=== PATIENT | female | born 1950 ===

== ENCOUNTER 2017-09-19 12:37 | Emergency (ER) | payer MEDICARE, MEDICAID ==
[2017-09-19] MEDS ORDERED: Sodium Chloride 0.9% 1,000 ML IV STA (13:21)
[2017-09-19 14:15] LABS: BASO % 0.4 % (0.0-2.0); EOS # 0.1 K/uL (0.0-0.7); EOS % 1.4 % (0.0-4.0); HEMOGLOBIN 11.8 g/dL (12.0-16.0); LYMPH % 41.3 % (20.0-40.0); MEAN CELL VOLUME 73.9 fl (81.0-99.0); MEAN CORPUSCULAR HEMOGLOBIN 23.1 pg (27.0-31.0); MEAN CORPUSCULAR HGB CONC 31.3 g/dL (33.0-37.0); MEAN PLATELET VOLUME 8.4 fl (7.2-11.7); MONO # 0.4 K/uL (0.0-0.8); MONO % 4.9 % (0.0-10.0); NEUT # 3.8 K/uL (1.8-7.0); RBC 5.09 Mil/uL (3.80-5.20); WHITE BLOOD COUNT 7.4 K/uL (4.8-10.8)
--- NOTE | 2017-09-19 14:17 | ED PDOC ---
Hyperglycemia/Hypoglycemia Time Seen by Provider: 09/19/17 12:48 Chief Complaint (Nursing): High Blood Sugar Chief Complaint (Provider): High blood sugar History Per: Patient History/Exam Limitations: no limitations Onset/Duration Of Symptoms: Other (couple of months) Current Symptoms Are (Timing): Still Present Causative (Exacerbating) Factor(s): Missed Taking Medication : The patient does not have any of the infectious symptoms listed except for those marked. Additional Complaint(s): 66 year old female, with a past medical hx of diabetes, presents to the ED via EMS complaining of elevated blood sugar for a couple of months. Patient reports she ran out of her prescriptions for metformin and insulin. She states she moved here a few months ago from [place] and hasn't seen her primary care doctor for a while. She saw her new PCP today who sent her to the ED due to the elevated blood sugar which was in the 400s in the office. Patient is complaining of increased thirst, generalized weakness, and increased urination. PCP: Mert Hartmann Past Medical History Reviewed: Historical Data, Nursing Documentation, Vital Signs Vital Signs: Last Vital Signs Temp 98.2 F 09/19/17 12:39 Pulse 79 09/19/17 12:39 Resp 18 09/19/17 12:39 BP 123/64 09/19/17 12:39 Pulse Ox 97 09/19/17 12:39 - Medical History PMH: CAD, HTN, TIA Denies: Chronic Kidney Disease - Surgical History Surgical History: Cholecystectomy, Coronary Stent, - Family History Family History: States: Unknown Family Hx - Social History Current smoker - smoking cessation education provided: No Alcohol: Social Drugs: Denies - Allergies Allergies/Adverse Reactions: Allergies Allergy/AdvReac Type Severity Reaction Status Date / Time iodine Allergy RASH Verified 09/19/17 12:39 morphine Allergy RASH Verified 09/19/17 12:39 Review of Systems ROS Statement: Except As Marked, All Systems Reviewed And Found Negative Constitutional: Positive for: Weakness, Other (thirsty) Cardiovascular: Negative for: Chest Pain Genitourinary Female: Positive for: Other (increased urination) Physical Exam - Reviewed Nursing Documentation Reviewed: Yes Vital Signs Reviewed: Yes - Physical Exam Appears: Positive for: Non-toxic, No Acute Distress Head Exam: Positive for: ATRAUMATIC, NORMOCEPHALIC Skin: Positive for: Normal Color, Warm, Dry Eye Exam: Positive for: EOMI, Normal appearance, PERRL ENT: Positive for: Normal ENT Inspection Neck: Positive for: Normal, Painless ROM Cardiovascular/Chest: Positive for: Regular Rate, Rhythm Respiratory: Positive for: CNT, Normal Breath Sounds Gastrointestinal/Abdominal: Positive for: Normal Exam, Soft. Negative for: Tenderness Extremity: Positive for: Normal ROM Neurologic/Psych: Positive for: Alert, Oriented. Negative for: Motor/Sensory Deficits - Laboratory Results Result Diagrams: 09/19/17 14:00 09/19/17 14:00 - ECG O2 Sat by Pulse Oximetry: 97 (RA) Pulse Ox Interpretation: Normal - Progress Re-evaluation Time: 16:46 Condition: Re-examined, Improved Medical Decision Making Medical Decision Making: Initial Impression: Hyperglycemia. Differentials include but not limited to uncontrolled diabetes due to noncompliance with medications. r/o DKA, UTI Initial Plan: CMP ED urine dipstick CBC Sodium chloride 1000mL IV Accucheck 1630 Patient is improved. Hyperglycemia is decreased to below 300. Patient reports she has rx at the pharmacy. Scribe Attestation: Documented by David Tijerina acting as a scribe for Laura Ocasio MD. Provider Scribe Attestation: All medical record entries made by the Scribe were at my direction and personally dictated by me. I have reviewed the chart and agree that the record accurately reflects my personal performance of the history, physical exam, medical decision making, and the department course for this patient. I have also personally directed, reviewed, and agree with the discharge instructions and disposition. Disposition - Clinical Impression Clinical Impression: Diabetic complication, Hyperglycemia - Patient ED Disposition Is Patient to be Admitted: No Discussed With : Mert Bright Doctor Will See Patient In The: Office Counseled Patient/Family Regarding: Studies Performed, Diagnosis, Need For Followup - Disposition Referrals: Mert Bright MD [Staff Provider] - Disposition: Routine/Home Disposition Time: 16:46 Condition: GOOD Additional Instructions: Take your medications as instructed. Follow up with your PCP in 2-3 days Instructions: Type 2 Diabetes, Diabetes and Diet
[2017-09-19 14:35] LABS: ALB/GLOB RATIO 1.3 (1.0-2.1); ALBUMIN 3.7 g/dL (3.5-5.0); ALT/SGPT 27 U/L (9-52); AST/SGOT 18 U/L (14-36); BLOOD UREA NITROGEN 11 mg/dl (7-17); CALCIUM 8.8 mg/dL (8.4-10.2); GFR AFRICAN-AMERICAN > 60; GFR NON-AFRICAN AMERICAN > 60
[2017-09-19] MEDS ORDERED: Insulin Regular 100 units/ml IV STA (14:58)
[2017-09-19] MEDS ORDERED: Insulin Regular 100 units/ml ONE (15:16)
[2017-09-19 16:48] VITALS: O2SAT 97
[2017-09-19 17:14] VITALS: BP 139/84; PULSE 84; RESP 16; TEMP 97.9
== END 2017-09-19 17:12 | disposition home or self-care (01) ==
LOC: H.ER 12:37
DX: E11.65 Type 2 diabetes mellitus with hyperglycemia (principal); Z91.14 Patient's other noncompliance with medication regimen; Z95.5 Presence of coronary angioplasty implant and graft
CPT/HCPCS: 80053; 85025; 96360; 99283; J7030

== ENCOUNTER 2017-12-18 12:48 | Emergency (ER) | payer MEDICAID, MEDICARE ==
[2017-12-18 12:54] VITALS: TEMP 98.2
--- NOTE | 2017-12-18 13:42 | ED PDOC ---
HPI: Psych/Substance Abuse Time Seen by Provider: 12/18/17 13:08 Chief Complaint (Nursing): Anxiety Chief Complaint (Provider): Anxiety History Per: Patient Additional Complaint(s): 66 year old female, with a past medical hx of diabetes, presents to the ED via EMS complaining of feeling anxious, feeling itching and something crawling all over her body. Pt asking for xanax and a pillow Past Medical History Reviewed: Historical Data, Nursing Documentation, Vital Signs Vital Signs: Last Vital Signs Temp 98.2 F 12/18/17 12:51 Pulse 92 H 12/18/17 12:51 Resp 19 12/18/17 12:51 BP 116/53 L 12/18/17 12:51 Pulse Ox 98 12/18/17 12:51 - Medical History PMH: Anxiety, Bronchitis, CAD, HTN, TIA Denies: Chronic Kidney Disease - Surgical History Surgical History: Cholecystectomy, Coronary Stent, - Family History Family History: States: Unknown Family Hx - Living Arrangements Living Arrangements: With Family - Social History Current smoker - smoking cessation education provided: No Alcohol: None Drugs: Denies - Home Medications Home Medications: Ambulatory Orders Medication Instructions Recorded Aripiprazole 20 mg PO DAILY 11/06/17 Aspirin [Aspirin Chewable] 81 mg PO DAILY 11/06/17 Atorvastatin [Lipitor] 50 mg PO DAILY 11/06/17 Dicyclomine [Bentyl] 20 mg PO DAILY 11/06/17 Enalapril Maleate [Vasotec] 5 mg PO DAILY 11/06/17 Gabapentin [Neurontin] 400 mg PO BID 11/06/17 Meloxicam 15 mg PO DAILY 11/06/17 Memantine [Namenda] 5 mg PO DAILY 11/06/17 Omeprazole 40 mg PO DAILY 11/06/17 Repaglinide [Prandin] 2 mg PO BID 11/06/17 Sucralfate [Carafate] 500 mg PO BID 11/06/17 metFORMIN [glucOPHAGE] 500 mg PO BID 11/06/17 Alprazolam [Xanax] 0.5 mg PO HS #3 tab 12/18/17 - Allergies Allergies/Adverse Reactions: Allergies Allergy/AdvReac Type Severity Reaction Status Date / Time iodine Allergy RASH Verified 11/06/17 00:48 morphine Allergy RASH Verified 11/06/17 00:48 Review of Systems ROS Statement: Except As Marked, All Systems Reviewed And Found Negative Psych: Positive for: Anxiety Physical Exam - Reviewed Nursing Documentation Reviewed: Yes Vital Signs Reviewed: Yes - Physical Exam Appears: Positive for: Well, Non-toxic, No Acute Distress Head Exam: Positive for: ATRAUMATIC, NORMAL INSPECTION, NORMOCEPHALIC Skin: Positive for: Normal Color, Warm, DRY Eye Exam: Positive for: EOMI, Normal appearance, PERRL ENT: Positive for: Normal ENT Inspection Neck: Positive for: Normal, Painless ROM Cardiovascular/Chest: Positive for: Regular Rate, Rhythm Respiratory: Positive for: CNT, Normal Breath Sounds Gastrointestinal/Abdominal: Positive for: Normal Exam, Soft Back: Positive for: Normal Inspection Extremity: Positive for: Normal ROM Neurologic/Psych: Positive for: Alert, Oriented - ECG O2 Sat by Pulse Oximetry: 98 Medical Decision Making Medical Decision Making: Pt declined crisis eval Pt asking for Xanax Rx and to go home Disposition - Clinical Impression Clinical Impression: Anxiety - Patient ED Disposition Is Patient to be Admitted: No - Disposition Referrals: Mert Bright MD [Primary Care Provider] - Disposition: Routine/Home Disposition Time: 13:58 Condition: STABLE Prescriptions: Alprazolam [Xanax] 0.5 mg PO HS #3 tab Instructions: Anxiety, Adult (DC) Forms: [employer] (Kiswahili)
[2017-12-18 13:54] VITALS: BP 128/84; PULSE 74; RESP 18
[2017-12-18 13:57] VITALS: O2SAT 98
== END 2017-12-18 13:54 | disposition home or self-care (01) ==
LOC: H.ER 12:48 → SUPCPDRO 12:48 → H.ER 13:54
DX: F41.9 Anxiety disorder, unspecified (principal); E11.9 Type 2 diabetes mellitus without complications; Z79.84 Long term (current) use of oral hypoglycemic drugs

== ENCOUNTER 2017-12-25 11:21 | Emergency (ER) | payer MEDICARE, MEDICAID ==
[2017-12-25] MEDS ORDERED: Albuterol-Ipratrop 3 mg / 0.5 (3 ml) UD INH STA ×2 (11:52→11:56)
[2017-12-25] MEDS ORDERED: Azithromycin 500 MG in Sodium Chloride 0.9% 250 ML IVPB STA (11:54)
[2017-12-25] MEDS ORDERED: Albuterol-Ipratrop 3 mg / 0.5 (3 ml) UD ONE (12:31)
[2017-12-25] MEDS ORDERED: Azithromycin 500 MG IV IVPB ONE (12:32)
--- NOTE | 2017-12-25 12:43 | RAD ---
Date of service: 12/25/2017 PROCEDURE: CHEST RADIOGRAPH, 1 VIEW HISTORY: cough COMPARISON: None available. FINDINGS: LUNGS: Mild dependent atelectasis is noted. No focal infiltrate is seen. No CHF is noted. PLEURA: No pneumothorax or pleural fluid seen. CARDIOVASCULAR: Normal. OSSEOUS STRUCTURES: No significant abnormalities. VISUALIZED UPPER ABDOMEN: Normal. OTHER FINDINGS: None. IMPRESSION: No focal infiltrate or CHF.
[2017-12-25 13:45] LABS: BASO % 0.6 % (0.0-2.0); EOS # 0.1 K/uL (0.0-0.7); EOS % 1.5 % (0.0-4.0); HEMOGLOBIN 11.9 g/dL (12.0-16.0); LYMPH # 3.5 K/uL (1.0-4.3); LYMPH % 43.8 % (20.0-40.0); MEAN CELL VOLUME 77.3 fl (81.0-99.0); MEAN CORPUSCULAR HEMOGLOBIN 24.4 pg (27.0-31.0); MEAN CORPUSCULAR HGB CONC 31.6 g/dL (33.0-37.0); MEAN PLATELET VOLUME 8.1 fl (7.2-11.7); MONO # 0.4 K/uL (0.0-0.8); MONO % 5.2 % (0.0-10.0); NEUT # 3.9 K/uL (1.8-7.0); NEUT % 48.9 % (50.0-75.0); NRBC % 0.1 % (0.0-0.0); RBC 4.87 Mil/uL (3.80-5.20); RED CELL DISTRIBUTION WIDTH 18.3 % (11.5-14.5); WHITE BLOOD COUNT 7.9 K/uL (4.8-10.8)
[2017-12-25 13:54] LABS: BLOOD UREA NITROGEN 9 mg/dl (7-17); GFR NON-AFRICAN AMERICAN > 60
--- NOTE | 2017-12-25 14:00 | ED PDOC ---
HPI: SOB/CHF/COPD Time Seen by Provider: 12/25/17 11:49 Chief Complaint (Nursing): Shortness Of Breath History/Exam Limitations: no limitations Onset/Duration Of Symptoms: Days Current Symptoms Are (Timing): Still Present Initiating Event: Upper Respiratory Illness Associated Symptoms: Chills, Productive Cough. denies: Ankle/Leg Swelling, Dizziness, Light-headedness Additional Complaint(s): 67 yo F with PMHx of asthma, DM, and anxiety presents with wheeze and cough worsening for 2 days. Denies fever but states she has felt chills. No CP. No previous intubations. Pt states she used albuterol at home but it did not help. Past Medical History Vital Signs: Last Vital Signs Temp 98 F 12/25/17 11:25 Pulse 88 12/25/17 11:25 Resp 17 12/25/17 12:23 BP 128/74 12/25/17 11:25 Pulse Ox 98 12/25/17 12:23 - Medical History PMH: Anxiety, Asthma, Bronchitis, CAD, HTN, TIA Denies: Chronic Kidney Disease - Surgical History Surgical History: Cholecystectomy, Coronary Stent, - Family History Family History: States: Unknown Family Hx - Home Medications Home Medications: Ambulatory Orders Medication Instructions Recorded Aripiprazole 20 mg PO DAILY 11/06/17 Aspirin [Aspirin Chewable] 81 mg PO DAILY 11/06/17 Atorvastatin [Lipitor] 50 mg PO DAILY 11/06/17 Dicyclomine [Bentyl] 20 mg PO DAILY 11/06/17 Enalapril Maleate [Vasotec] 5 mg PO DAILY 11/06/17 Gabapentin [Neurontin] 400 mg PO BID 11/06/17 Meloxicam 15 mg PO DAILY 11/06/17 Memantine [Namenda] 5 mg PO DAILY 11/06/17 Omeprazole 40 mg PO DAILY 11/06/17 Repaglinide [Prandin] 2 mg PO BID 11/06/17 Sucralfate [Carafate] 500 mg PO BID 11/06/17 metFORMIN [glucOPHAGE] 500 mg PO BID 11/06/17 Alprazolam [Xanax] 0.5 mg PO HS #3 tab 12/18/17 Albuterol HFA [Ventolin HFA 90 2 puff IH [id number] #1 pump 12/25/17 mcg/actuation (8 g)] Azithromycin [Z-To] 250 mg PO DAILY #6 tab 12/25/17 predniSONE [predniSONE Tab] 40 mg PO DAILY #8 tab 12/25/17 - Allergies Allergies/Adverse Reactions: Allergies Allergy/AdvReac Type Severity Reaction Status Date / Time iodine Allergy RASH Verified 12/25/17 11:27 morphine Allergy RASH Verified 12/25/17 11:27 Curb-65 Severity Score - CURB-65 Severity Score Confusion: No Bun >19mg/dl (>7mmol/L): No Respiratory Rate greater than/equal to 30: No Systolic BP <90 or Diastolic BP less than/equal 60mmHg: No Age >64: Yes Curb-65 Score: 1 Percentage 30-day mortality: 2.7% Review of Systems Constitutional: Positive for: Chills Cardiovascular: Negative for: Chest Pain, Palpitations, Edema Respiratory: Positive for: Cough, Shortness of Breath, Wheezing Gastrointestinal: Negative for: Nausea, Vomiting, Abdominal Pain Genitourinary Female: Negative for: Dysuria Skin: Negative for: Rash, Lesions Psych: Positive for: Anxiety - Laboratory Results Result Diagrams: 12/25/17 12:30 12/25/17 12:30 - ECG O2 Sat by Pulse Oximetry: 98 Medical Decision Making Medical Decision Makin yo F with asthma with cough. -duonebs -solumedrol -CXR -Azithromycin -reassess pt 1239 Chest X-Ray FINDINGS: LUNGS: Mild dependent atelectasis is noted. No focal infiltrate is seen. No CHF is noted. PLEURA: No pneumothorax or pleural fluid seen. CARDIOVASCULAR: Normal. OSSEOUS STRUCTURES: No significant abnormalities. VISUALIZED UPPER ABDOMEN: Normal. OTHER FINDINGS: None. IMPRESSION: No focal infiltrate or CHF. labs WNL, CXR shows no infiltrates. Pt with elevated blood glucose but refusing insulin while in the ED stating she will take it when she gets home. Pt will follow up with PMD this week. Return parameters discussed. Disposition - Clinical Impression Clinical Impression: Respiratory distress, Asthma, Bronchitis - Disposition Disposition: Routine/Home Disposition Time: 14:15 Condition: IMPROVED Additional Instructions: Take medications as prescribed. Follow up with Dr. Bright this week. Return to the emergency department if symptoms worsen or if new symptoms develop. Prescriptions: Albuterol HFA [Ventolin HFA 90 mcg/actuation (8 g)] 2 puff IH [id number] #1 pump Azithromycin [Z-To] 250 mg PO DAILY #6 tab predniSONE [predniSONE Tab] 40 mg PO DAILY #8 tab Forms: [employer] ([place]orese) Print Language: SPA
[2017-12-25 15:22] VITALS: BP 124/74; PULSE 76; RESP 20; TEMP 98.2; O2SAT 99
== END 2017-12-25 15:22 | disposition home or self-care (01) ==
LOC: H.ER 11:21
DX: R06.03 Acute respiratory distress (principal); J45.909 Unspecified asthma, uncomplicated; J44.9 Chronic obstructive pulmonary disease, unspecified; I10 Essential (primary) hypertension; Z86.73 Personal history of transient ischemic attack (TIA), and cerebral infarction without residual deficits; Z95.5 Presence of coronary angioplasty implant and graft
CPT/HCPCS: 71045; 80048; 82948; 85025; 87040; 96365; 96375; 99283; J0456; J2930; J7050

== ENCOUNTER 2017-12-27 10:40 | Observation (INO) | payer MEDICARE, MEDICAID ==
[2017-12-27] MEDS ORDERED: Albuterol-Ipratrop 3 mg / 0.5 (3 ml) UD IH STA ×2 (10:59→11:00)
--- NOTE | 2017-12-27 11:03 | ED PDOC ---
HPI: CCC, URI, Sore Throat Time Seen by Provider: 12/27/17 10:54 History Per: Patient Onset/Duration Of Symptoms: Days (2) Associated Symptoms: Cough, Sputum. denies: Fever Severity: Moderate Additional Complaint(s): Cough productive white sputum x 2 days assoc with SOB and wheezing. Denies fever. Seen here 3 days ago and tx'ed with nebs, steroids and antibiotics. Past Medical History Vital Signs: Last Vital Signs Temp 98.3 F 12/27/17 10:51 Pulse 101 H 12/27/17 10:51 Resp 18 12/27/17 10:51 BP 99/67 L 12/27/17 10:51 Pulse Ox 95 12/27/17 10:51 - Medical History PMH: Anxiety, Asthma, Bronchitis, CAD, HTN, TIA Denies: Chronic Kidney Disease - Surgical History Surgical History: Cholecystectomy, Coronary Stent, - Family History Family History: States: Unknown Family Hx - Home Medications Home Medications: Ambulatory Orders Medication Instructions Recorded Aripiprazole 20 mg PO DAILY 11/06/17 Aspirin [Aspirin Chewable] 81 mg PO DAILY 11/06/17 Atorvastatin [Lipitor] 50 mg PO DAILY 11/06/17 Dicyclomine [Bentyl] 20 mg PO DAILY 11/06/17 Enalapril Maleate [Vasotec] 5 mg PO DAILY 11/06/17 Gabapentin [Neurontin] 400 mg PO BID 11/06/17 Meloxicam 15 mg PO DAILY 11/06/17 Memantine [Namenda] 5 mg PO DAILY 11/06/17 Omeprazole 40 mg PO DAILY 11/06/17 Repaglinide [Prandin] 2 mg PO BID 11/06/17 Sucralfate [Carafate] 500 mg PO BID 11/06/17 metFORMIN [glucOPHAGE] 500 mg PO BID 11/06/17 Alprazolam [Xanax] 0.5 mg PO HS #3 tab 12/18/17 Albuterol HFA [Ventolin HFA 90 2 puff IH [id number] #1 pump 12/25/17 mcg/actuation (8 g)] Azithromycin [Z-To] 250 mg PO DAILY #6 tab 12/25/17 predniSONE [predniSONE Tab] 40 mg PO DAILY #8 tab 12/25/17 - Allergies Allergies/Adverse Reactions: Allergies Allergy/AdvReac Type Severity Reaction Status Date / Time iodine Allergy RASH Verified 12/25/17 11:27 morphine Allergy RASH Verified 12/25/17 11:27 Review of Systems ROS Statement: Except As Marked, All Systems Reviewed And Found Negative Constitutional: Negative for: Fever Respiratory: Positive for: Cough, Shortness of Breath, Wheezing Physical Exam - Reviewed Nursing Documentation Reviewed: Yes Vital Signs Reviewed: Yes - Physical Exam Appears: Positive for: Non-toxic, No Acute Distress Head Exam: Positive for: ATRAUMATIC, NORMAL INSPECTION, NORMOCEPHALIC Skin: Positive for: Normal Color, Warm, DRY Eye Exam: Positive for: EOMI, Normal appearance, PERRL ENT: Positive for: Normal ENT Inspection Neck: Positive for: Normal, Painless ROM Cardiovascular/Chest: Positive for: Regular Rate, Rhythm Respiratory: Positive for: Rhonchi, Wheezing. Negative for: Respiratory Distr ess Gastrointestinal/Abdominal: Positive for: Normal Exam, Soft Back: Positive for: Normal Inspection Extremity: Positive for: Normal ROM. Negative for: Calf Tenderness Neurologic/Psych: Positive for: Alert, Oriented - Laboratory Results Result Diagrams: 12/27/17 11:45 12/27/17 11:45 - ECG O2 Sat by Pulse Oximetry: 95 - Progress Re-evaluation Time: 13:16 Condition: Re-examined (Persistent wheezing after tx and outpt tx. No resp distress.) Disposition - Clinical Impression Clinical Impression: Asthma, Failure of outpatient treatment - Patient ED Disposition Is Patient to be Admitted: Yes - Disposition Disposition Time: 13:17 Condition: FAIR - Pt Status Changed To: Hospital Disposition Of: Observation - POA Present On Arrival: None
[2017-12-27] MEDS ORDERED: Albuterol-Ipratrop 3 mg / 0.5 (3 ml) UD ONE (11:18)
[2017-12-27 12:09] LABS: BASO % 0.4 % (0.0-2.0); EOS % 0.4 % (0.0-4.0); HEMOGLOBIN 11.9 g/dL (12.0-16.0); LYMPH # 3.4 K/uL (1.0-4.3); MEAN CELL VOLUME 77.1 fl (81.0-99.0); MEAN CORPUSCULAR HEMOGLOBIN 24.6 pg (27.0-31.0); MEAN CORPUSCULAR HGB CONC 31.9 g/dL (33.0-37.0); MEAN PLATELET VOLUME 8.1 fl (7.2-11.7); MONO # 0.5 K/uL (0.0-0.8); MONO % 5.3 % (0.0-10.0); NEUT # 6.2 K/uL (1.8-7.0); NEUT % 60.9 % (50.0-75.0); NRBC % 0.1 % (0.0-0.0); RBC 4.85 Mil/uL (3.80-5.20); RED CELL DISTRIBUTION WIDTH 18.2 % (11.5-14.5); WHITE BLOOD COUNT 10.2 K/uL (4.8-10.8)
[2017-12-27 12:13] LABS: ALB/GLOB RATIO 1.5 (1.0-2.1); ALBUMIN 3.9 g/dL (3.5-5.0); ALT/SGPT 20 U/L (9-52); AST/SGOT 19 U/L (14-36); BLOOD UREA NITROGEN 24 mg/dl (7-17); CALCIUM 9.2 mg/dL (8.4-10.2); GFR NON-AFRICAN AMERICAN > 60
[2017-12-27] MEDS ORDERED: Sodium Chloride 0.9% 1,000 ML IV STA (12:29)
[2017-12-27] MEDS ORDERED: Insulin Regular 100 units/ml SC STA ×2 (12:29→13:59)
[2017-12-27] MEDS ORDERED: Insulin Regular 100 units/ml ONE (13:04)
--- NOTE | 2017-12-27 13:08 | RAD ---
Date of service: 12/27/2017 HISTORY: Cough SOB COMPARISON: 12/25/2017. TECHNIQUE: Chest PA and lateral FINDINGS: LUNGS: No active pulmonary disease. PLEURA: No significant pleural effusion identified. No pneumothorax apparent. CARDIOVASCULAR: Normal. OSSEOUS STRUCTURES: No significant abnormalities. VISUALIZED UPPER ABDOMEN: Normal. OTHER FINDINGS: None. IMPRESSION: No active disease. No significant interval change compared to the prior examination(s).
[2017-12-27] MEDS ORDERED: Dextrose 50% SYRINGE Inj (50 ml) IV PRN (15:20)
[2017-12-27] MEDS ORDERED: Glucagon Recombinant 1 mg Inj IM PRN (15:20)
[2017-12-27] MEDS: Insulin Lispro (humaLOG) 100 Units/ml Inj SC SCH ×4 (15:26→22:01)
[2017-12-27] MEDS ORDERED: MethylPREDNISolone 40 mg Vial IVP SCH (15:30)
[2017-12-27] MEDS: Albuterol-Ipratrop 3 mg / 0.5 (3 ml) UD INH SCH ×2 (15:51→20:30)
[2017-12-27] MEDS ORDERED: methylPREDNISolone 40 MG in Sodium Chloride 0.9% 50 ML IVPB SCH (17:00)
[2017-12-27] MEDS: Apap-Butalbital-Caffeine 325-50-40mg Tab PO PRN (17:24)
[2017-12-27] MEDS: MethylPREDNISolone 40 mg Vial IVP SCH (18:19)
[2017-12-27] MEDS: Insulin Detemir 100 Units/ml Inj SC SCH (21:58)
[2017-12-27] MEDS: Pravastatin Sodium 20 MG TAB PO SCH (23:13)
[2017-12-27] MEDS: Azithromycin 500 MG in Sodium Chloride 0.9% 250 ML IVPB SCH (23:13)
[2017-12-28] MEDS ORDERED: Alum-Mag Hydrox-Simethicone Susp (30 mL) PO ONE (00:09)
[2017-12-28] MEDS: MethylPREDNISolone 40 mg Vial IVP SCH ×3 (00:20→18:22)
[2017-12-28] MEDS: Insulin Lispro (humaLOG) 100 Units/ml Inj SC SCH ×8 (02:51→22:08)
--- NOTE | 2017-12-28 03:10 | HP ---
HISTORY OF PRESENT ILLNESS: This is a 67-year-old female with history of multiple medical problems, presented to emergency room with symptoms of shortness of breath, cough, and wheezing. Patient visited emergency room a couple of times before today, and she was on antibiotics as well as bronchodilator as an outpatient. The patient failed outpatient treatment and she presented to emergency room for evaluation and admitted. The patient was a smoker, and as per the patient, the patient quit 5 months ago. The patient stated that she has cough and expectoration of yellow sputum, positive wheezing, and positive shortness of breath. FAMILY HISTORY: Noncontributory. SOCIAL HISTORY: Ex-smoker. No EtOH or substance abuse. REVIEW OF SYSTEMS: Other review of systems is positive for back pain, both mid and lower back. ALLERGY: POSITIVE FOR MORPHINE AND IODINE. MEDICATIONS: Were reviewed and ordered as per MAR. PHYSICAL EXAMINATION: GENERAL: The patient is in bed, not in any cardiopulmonary distress. VITAL SIGNS: Blood pressure 116/76, temperature 97.6, respiratory rate 22, and pulse 90. HEENT: Pupils equal, reactive to light. Normal-appearing mucosa of the conjunctivae, oropharynx and nasal membrane mucosa. NECK: Supple. No JVD. No carotid bruit. No lymph node. No thyromegaly. CARDIOPULMONARY: PMI not localized. S1, S2. No additional sounds. CHEST: Lungs, bilateral symmetrical expansion. Good air exchange. There are coarse rales and there are scattered rhonchi all over lung burks. ABDOMEN: Normoactive bowel sounds. No tenderness. No organomegaly. No masses. EXTREMITIES: No cyanosis, no clubbing, no edema. HEALTH AND WELLNESS MANAGER: Alert, awake, oriented x2. No neurological deficit could be appreciated. ASSESSMENT: 1. Exacerbation of chronic obstructive pulmonary disease. 2. Hypertension. 3. Uncontrolled type 2 diabetes mellitus. 4. Degenerative spine disease. PLAN: Resume the patient's home medications and start the patient on both Solu-Medrol, bronchodilators, and antibiotics. Chest x-ray was done and reported as no active disease and no significant interval change compared to the prior examination. Mert Bright MD [facility] # [id number]
[2017-12-28 06:20] LABS: HEMOGLOBIN 11.2 g/dL (12.0-16.0); MEAN CORPUSCULAR HEMOGLOBIN 24.6 pg (27.0-31.0); MEAN CORPUSCULAR HGB CONC 31.9 g/dL (33.0-37.0); RBC 4.57 Mil/uL (3.80-5.20); RED CELL DISTRIBUTION WIDTH 18.2 % (11.5-14.5); WHITE BLOOD COUNT 12.9 K/uL (4.8-10.8)
[2017-12-28 06:34] LABS: ALB/GLOB RATIO 1.4 (1.0-2.1); ALBUMIN 3.7 g/dL (3.5-5.0); ALT/SGPT 23 U/L (9-52); AST/SGOT 14 U/L (14-36); BLOOD UREA NITROGEN 13 mg/dl (7-17); CALCIUM 9.2 mg/dL (8.4-10.2); GFR NON-AFRICAN AMERICAN > 60
--- NOTE | 2017-12-28 07:03 | CARD ---
APPROVED REPORT Date of service: 12/27/2017 EKG Measurement Heart [id number] CT [id number] <Conclusion> Normal sinus rhythm Normal Electrocardiogram
[2017-12-28] MEDS: Albuterol-Ipratrop 3 mg / 0.5 (3 ml) UD INH SCH ×4 (07:30→19:20)
[2017-12-28] MEDS: Divalproex 500 mg DR(BID formulation) PO SCH (09:11)
[2017-12-28] MEDS: Enoxaparin 40 mg Syringe SC SCH (09:15)
[2017-12-28] MEDS: Pantoprazole 40 mg EC Tab PO SCH (09:20)
[2017-12-28] MEDS: Azithromycin 500 MG in Sodium Chloride 0.9% 250 ML IVPB SCH (09:25)
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
--- NOTE | 2017-12-28 12:55 | MRI ---
Date of service: 12/27/2017 PROCEDURE: MR LUMBAR SPINE WITHOUT CONTRAST HISTORY: back pain COMPARISON: None available. TECHNIQUE: Multiecho multiplanar sequences were performed through the lumbar spine without the use of intravenous contrast. FINDINGS: There is 2 mm degenerative anterior listhesis of L3 on L4. There is normal lumbar lordosis. There is no acute fracture or spondylolysis. There are degenerative endplate marrow changes at L4-5 on the right, otherwise bone marrow signal is within normal limits. The conus medullaris terminates at a normal level and the nerve roots of cauda equina are normal. T12-L1: No disc herniation, spinal canal stenosis or neural foraminal narrowing. L1-2: No disc herniation, spinal canal stenosis or neural foraminal narrowing. L2-3: Mild posterior disc bulge and ligamentum flavum infolding without spinal canal stenosis. Mild bilateral facet arthropathy contribute to mild neural foraminal narrowing. L3-4: Diffuse posterior disc bulge and mild ligamentum flavum infolding without spinal canal stenosis. Severe bilateral facet arthropathy contribute to moderate neural foraminal narrowing. L4-5: Diffuse posterior disc bulge with superimposed broad-based central disc protrusion indents the thecal sac and in conjunction with mild ligamentum flavum infolding result in mild spinal canal stenosis. Also noted are superimposed right foraminal and far lateral disc protrusions which abut the exiting right L4 nerve root. Moderate bilateral facet arthropathy contribute to severe right and moderate left neural foraminal narrowing. L5-S1: Central annular tear without spinal canal stenosis or neural foraminal narrowing. OTHER FINDINGS: The paraspinous soft tissues are normal. Imaged portion of the retroperitoneum is within normal limits. IMPRESSION: Multilevel degenerative disc disease, worse at L4-5 with a broad-based central disc protrusion and mild spinal canal stenosis, and superimposed right foraminal and far lateral disc protrusions which abut the exiting right L4 nerve root. Also noted is severe right and moderate left neural foraminal narrowing. Additional comments as described above. A preliminary report was provided by [employer].
[2017-12-28] MEDS: Apap-Butalbital-Caffeine 325-50-40mg Tab PO PRN (12:57)
--- NOTE | 2017-12-28 13:20 | MRI ---
Date of service: 12/27/2017 PROCEDURE: MR THORACIC SPINE WITHOUT CONTRAST HISTORY: Back pain COMPARISON: None available. TECHNIQUE: Multiecho multiplanar sequences were performed through the thoracic spine without the use of intravenous contrast. FINDINGS: ALIGNMENT: There is normal alignment of the thoracic vertebral bodies. There is normal thoracic kyphosis. VERTEBRA: There is no acute fracture. Vertebral heights are maintained. MARROW: Marrow signal unremarkable. PARASPINAL SOFT TISSUES: The paraspinous soft tissues are normal. CORD: Thoracic cord is normal in contour, caliber and has normal intrinsic signal. DISCS: C7-T1: Broad-based central disc protrusion and mild ligamentum flavum infolding result in mild spinal canal stenosis. Mild facet arthropathy contribute to mild left neural foraminal narrowing. T1-2: Broad-based central disc protrusion and left posterolateral protrusions and mild spinal canal stenosis. Mild bilateral facet arthropathy contribute to moderate neural foraminal narrowing. T2-3: No large disc herniation, spinal canal stenosis or neural foraminal narrowing. T3-4: No large disc herniation, spinal canal stenosis or neural foraminal narrowing. T4-5: No large disc herniation, neural foraminal narrowing or spinal canal stenosis. T5-6: Diffuse posterior disc bulge in conjunction with mild ligamentum flavum infolding result in mild spinal canal stenosis. Mild bilateral facet arthropathy contribute to mild neural foraminal narrowing. T6-7: Diffuse posterior disc bulge in conjunction with ligamentum flavum infolding result in mild spinal canal stenosis. Mild bilateral facet arthropathy contribute to mild neural foraminal narrowing. T7-8: Diffuse posterior disc bulge in conjunction with mild ligamentum flavum infolding result in mild spinal canal stenosis. Moderate bilateral facet arthropathy contribute to mild neural foraminal narrowing. T8-9: Diffuse posterior disc bulge and right posterolateral protrusion in conjunction with mild ligamentum flavum infolding result in mild spinal canal stenosis. Moderate bilateral facet arthropathy contribute to mild neural foraminal narrowing. T9-10: Diffuse posterior disc bulge and left posterolateral disc protrusion in conjunction with ligamentum flavum infolding result in mild spinal canal stenosis. Mild bilateral facet arthropathy contribute to mild neural foraminal narrowing. T10-11: No large disc herniation, neural foraminal or spinal canal stenosis. Moderate bilateral facet arthropathy. T11-12: No large disc herniation, neural foraminal or spinal canal stenosis. T12-L1: No large disc herniation, neural foraminal or spinal canal stenosis. OTHER FINDINGS: None. IMPRESSION: Advanced multilevel degenerative disc disease due to combination of disc bulges and protrusions, multilevel ligamentum flavum infolding and multilevel facet arthropathy, with mild multilevel spinal canal stenosis and variable degree of neural foraminal narrowing. Additional comments as described above.
[2017-12-28] MEDS: Pravastatin Sodium 20 MG TAB PO SCH (21:31)
[2017-12-28] MEDS: Insulin Detemir 100 Units/ml Inj SC SCH (22:37)
[2017-12-29] MEDS: MethylPREDNISolone 40 mg Vial IVP SCH (00:48)
--- NOTE | 2017-12-29 02:20 | PN ---
DATE: 12/28/2017 DAILY PROGRESS NOTE SUBJECTIVE: The patient is seen today, 12/28/2017. She is not in any cardiopulmonary distress. Wheezing and cough are less. PHYSICAL EXAMINATION: VITAL SIGNS: Blood pressure is 124/77, temperature 97.8, respiratory rate 20, and pulse 72. HEENT: Pupils equal and reactive to light. Normal-appearing mucosa of the conjunctivae, oropharynx, and nasal membrane mucosa. NECK: Supple. No JVD. No carotid bruit. No lymph node. No thyromegaly. CHEST AND LUNGS: Bilateral symmetrical expansion. Bilateral rhonchi which is less than yesterday. CARDIOVASCULAR SYSTEM: PMI not localized. S1 and S2. No additional sounds. ABDOMEN: Normoactive bowel sounds. No tenderness. No organomegaly. No masses. EXTREMITIES: No cyanosis, no clubbing, no edema. CENTRAL NERVOUS SYSTEM: Alert, awake, oriented x2 and no neurological deficit could be appreciated. ASSESSMENT: 1. Exacerbation of chronic obstructive pulmonary disease. 2. Smoker. 3. Back pain. 4. Uncontrolled type 2 diabetes mellitus. 5. Hypertension. PLAN: We will taper off steroids. Continue bronchodilators and follow pain management consult. Mert Bright MD
[2017-12-29 06:29] LABS: HEMOGLOBIN 11.9 g/dL (12.0-16.0); MEAN CELL VOLUME 76.4 fl (81.0-99.0); MEAN CORPUSCULAR HEMOGLOBIN 24.7 pg (27.0-31.0); MEAN CORPUSCULAR HGB CONC 32.3 g/dL (33.0-37.0); RBC 4.81 Mil/uL (3.80-5.20); RED CELL DISTRIBUTION WIDTH 17.9 % (11.5-14.5); WHITE BLOOD COUNT 11.9 K/uL (4.8-10.8)
[2017-12-29 06:40] LABS: BLOOD UREA NITROGEN 14 mg/dl (7-17); CALCIUM 9.1 mg/dL (8.4-10.2); GFR NON-AFRICAN AMERICAN > 60
[2017-12-29] MEDS: Albuterol-Ipratrop 3 mg / 0.5 (3 ml) UD INH SCH ×2 (07:38→12:35)
[2017-12-29 08:40] VITALS: BP 121/77; PULSE 73; RESP 20; TEMP 98.1; O2SAT 94
[2017-12-29] MEDS: Divalproex 500 mg DR(BID formulation) PO SCH (08:54)
[2017-12-29] MEDS: Insulin Lispro (humaLOG) 100 Units/ml Inj SC SCH ×4 (08:55→12:31)
[2017-12-29] MEDS: Enoxaparin 40 mg Syringe SC SCH (08:58)
[2017-12-29] MEDS: Pantoprazole 40 mg EC Tab PO SCH (08:59)
[2017-12-29] MEDS: Azithromycin 500 MG in Sodium Chloride 0.9% 250 ML IVPB SCH (09:08)
--- NOTE | 2017-12-30 15:40 | DS ---
REASON FOR ADMISSION: This is a 67-year-old female with history of multiple medical problems, was admitted for exacerbation of chronic obstructive pulmonary disease and back pain. COURSE OF HOSPITALIZATION: The patient was admitted to medical floor and she was started on IV steroid as well as antibiotics and bronchodilators. The patient responded well. The patient had an MRI of both thoracic and lumbar spine that showed multiple level degenerative spine disease with multiple disk bulges and spinal stenosis. The patient was discharged to continue the oral antibiotics and short-term steroid as well as to follow up with Dr. Stover for neurosurgery consult. FINAL DIAGNOSES: Exacerbation of chronic obstructive pulmonary disease, acute bronchitis, degenerative spine disease with back pain, hypertension, smoker, type 2 diabetes mellitus uncontrolled. [facility] MD [place]
== END 2017-12-29 14:07 | disposition home or self-care (01) ==
LOC: H.ER 10:40 → H.ERHOLD 13:14 → H.MEDSURG1 14:39
PROVIDERS: ADMIT Internal Medicine; ATTEND Internal Medicine
DX: J44.1 Chronic obstructive pulmonary disease with (acute) exacerbation (principal); F17.210 Nicotine dependence, cigarettes, uncomplicated; E11.65 Type 2 diabetes mellitus with hyperglycemia; Z86.73 Personal history of transient ischemic attack (TIA), and cerebral infarction without residual deficits; Z95.5 Presence of coronary angioplasty implant and graft; Z88.5 Allergy status to narcotic agent; Z91.041 Radiographic dye allergy status; F41.9 Anxiety disorder, unspecified; I25.10 Atherosclerotic heart disease of native coronary artery without angina pectoris; I10 Essential (primary) hypertension; G89.29 Other chronic pain
CPT/HCPCS: 36415; 71046; 72146; 72148; 80048; 80053; 82948; 85025; 85027; 87040; 93005; 94640; 96372; 96374; 97116; 97161; 97530; 99285; G0378; G8978; G8979; J0456; J0696; J1650; J2920; J2930; J7030